=== PATIENT | male | born 1955 | race Caucasian/White ===

== ENCOUNTER 2025-05-16 08:05 | Inpatient (IN) | payer OTHER, SELFPAY ==
--- NOTE | 2025-04-25 13:17 | CM ---
CM reviewed medical records. Patient confirmed demographics. Patient lives independently alone. Patient has had a history fo VN, but could not remember the agency. Patient does not have a history of SNF. Patient has a cane and commode. Patient
encouraged to call Marcell at [facility] to discuss obtaining further equipment as needed. Patent had left message for Myrtle Miranda PT and patient will make an appointment for 05/18.
Patient's friend and family will provide assistance as needed post operatively.
PLAN: home with outpatient PT.
[2025-04-26 13:31] LABS: Hematocrit 47.3 % (39.0-52.0); Hemoglobin 16.5 g/dL (13.0-18.0); Mean Corp Hgb Conc. 34.9 g/dL (33.0-37.0); Mean Corpuscular Volume 87.9 fL (80.0-94.0); Platelet Count 279 10^3/uL (130-400); Red Cell Dist. Width 12.7 % (11.5-14.5)
[2025-04-26 13:33] VITALS: BMI 32.9
[2025-04-26 14:05] LABS: ALT (SGPT) 59 U/L (0-50); AST (SGOT) 37 U/L (17-59); Albumin 5.1 g/dl (3.5-5.0); Alkaline Phosphatase 63 U/L (38-126); Blood Urea Nitrogen 17 mg/dl (9-20); Calcium 10.3 mg/dl (8.4-10.2); Carbon Dioxide 30 mmol/L (22-30); Chloride 100 mmol/L (98-107); Estimated Creatinine Clearance 110 ml/min; Glucose 111 mg/dl (70-99); Potassium 5.0 mmol/L (3.5-5.1); Sodium 138 mmol/L (135-145); Total Protein 8.1 g/dl (6.3-8.2); eGFR > 60.00
[2025-04-27 08:40] LABS: Glycohemoglobin (HgbA1c) 6.6 % (4.0-5.6)
[2025-04-27 15:44] VITALS: BMI 32.9
[2025-05-16] VITALS (14 sets, daily range): BP systolic 121–175; BP diastolic 76–115; PULSE 63; O2SAT 97
[2025-05-16 08:57] LABS: Glucose - Point of Care 120 mg/dl (70-99)
[2025-05-16] MEDS: TYLENOL 650 MG PO ×3 (09:04→19:48)
[2025-05-16] MEDS: CELEBREX 200 MG PO (09:04)
[2025-05-16] MEDS: NORMOSOL-R/PLASMALYTE-A 1000 IV ×2 (09:05→17:31)
[2025-05-16] MEDS: BACTROBAN NASAL 1 GRAM NASAL (09:05)
--- NOTE | 2025-05-16 11:19 | W.PN.ORTHO ---
Today's Communication / Plan
-
d/c when stable
Assessment
.
Dressing:
Clean, dry and intact.
Assessment:
NIDDM-A1C 6.6-+ Lantus w/ Novolog ac given hyperglycemic risk [id number] ppx OP
Plan
.
Surgery / Date: L CIARA Arreaga 05/16/25
DVT Prophylaxis: Aspirin
Activity:
Out of bed.
PT/OT
Discharge Plan: Home w/ Outpatient PT
Vital Signs and Labs
.
Vital Signs and Labs:
Lab Results
04/26/25 13:14
04/26/25 13:14
Temp Pulse Resp BP Pulse Ox
98.2 F 70 16 142/89 97
05/16/25 09:05 05/16/25 09:05 05/16/25 09:05 05/16/25 09:05 05/16/25 09:05
--- NOTE | 2025-05-16 12:34 | W.DS.TRANS ---
DC Summary - Receiving Lead
-
Discharge Instructions:
Sleep Apnea Risk Intermediate
Discharge Diagnosis/Procedures L CIARA Arreaga 05/16/25
Diet Diabetic, Carb Controlled
Activity With Walker
Driving Restrictions No driving
Bathing Restrictions OK to Shower
Other Services PT
Instructions:
Stand-Alone Forms: Total Hip/Knee Replacement D/C
Changes to Home Medications: Yes
Discharge Medications:
DC Medications w/original date entered in [employer]
magnesium 250 mg tablet 250 mg PO DAILY 04/25/25
mecobalamin (vitamin B12) 1,000 mcg chewable tablet (B12 Active) 1,000 mcg PO DAILY 04/25/25
metformin 500 mg tablet 500 mg PO DAILY 04/25/25
multivitamin 1 tab PO DAILY 04/25/25
pramipexole 0.125 mg tablet 0.125 mg PO BID PRN restless legs 04/25/25
rosuvastatin 10 mg tablet 10 mg PO DAILY 04/25/25
mupirocin 2 % topical ointment 1 applic intranasal BID #1 tube 04/26/25
cefadroxil 500 mg capsule 500 mg PO BID #14 caps 05/05/25
celecoxib 200 mg capsule (Celebrex) 200 mg PO DAILY #14 caps 05/05/25
famotidine 20 mg tablet (Pepcid) 20 mg PO HS #30 tabs 05/05/25
gabapentin 300 mg capsule 300 mg PO HS neuropathic pain/sleep #10 caps 05/05/25
ondansetron HCl 4 mg tablet 4 mg PO Q6H PRN nausea and vomiting #30 tabs 05/05/25
oxycodone 5 mg tablet 5 - 10 mg (1 - 2 x 5 mg) PO Q6H PRN moderate-severe pain #30 tabs 05/05/25
Saccharomyces boulardii 250 mg capsule (Florastor) 250 mg PO BID #1 cap 05/16/25
acetaminophen 325 mg tablet (Tylenol) 650 mg (2 x 325 mg) PO QID #1 tab 05/16/25
aspirin 325 mg tablet 325 mg PO DAILY blood clot prevention #1 tab 05/16/25
docusate sodium 100 mg capsule (Colace) 100 mg PO BID stool softner #1 cap 05/16/25
losartan 100 mg-hydrochlorothiazide 25 mg tablet 1 tab PO DAILY #0 tabs 05/16/25
magnesium hydroxide 400 mg/5 mL oral suspension (Milk of Magnesia) 30 ml PO HS PRN constipation #1 mL 05/16/25
sennosides 8.6 mg tablet (Senokot) 17.2 mg (2 x 8.6 mg) PO BID laxative #2 tabs 05/16/25
Home Medication Changes
mupirocin 2 % topical ointment 1 applic intranasal BID #1 tube 04/26/25
cefadroxil 500 mg capsule 500 mg PO BID #14 caps 05/05/25
celecoxib 200 mg capsule (Celebrex) 200 mg PO DAILY #14 caps 05/05/25
famotidine 20 mg tablet (Pepcid) 20 mg PO HS #30 tabs 05/05/25
gabapentin 300 mg capsule 300 mg PO HS neuropathic pain/sleep #10 caps 05/05/25
ondansetron HCl 4 mg tablet 4 mg PO Q6H PRN nausea and vomiting #30 tabs 05/05/25
oxycodone 5 mg tablet 5 - 10 mg (1 - 2 x 5 mg) PO Q6H PRN moderate-severe pain #30 tabs 05/05/25
Saccharomyces boulardii 250 mg capsule (Florastor) 250 mg PO BID #1 cap 05/16/25
acetaminophen 325 mg tablet (Tylenol) 650 mg (2 x 325 mg) PO QID #1 tab 05/16/25
aspirin 325 mg tablet 325 mg PO DAILY blood clot prevention #1 tab 05/16/25
docusate sodium 100 mg capsule (Colace) 100 mg PO BID stool softner #1 cap 05/16/25
losartan 100 mg-hydrochlorothiazide 25 mg tablet 1 tab PO DAILY #0 tabs 05/16/25
magnesium hydroxide 400 mg/5 mL oral suspension (Milk of Magnesia) 30 ml PO HS PRN constipation #1 mL 05/16/25
sennosides 8.6 mg tablet (Senokot) 17.2 mg (2 x 8.6 mg) PO BID laxative #2 tabs 05/16/25
Pending Results: No
[2025-05-16] MEDS: DILAUDID 0.5 MG IV ×2 (13:50→14:05)
[2025-05-16 13:56] LABS: Glucose - Point of Care 115 mg/dl (70-99)
[2025-05-16] MEDS: NOVOLOG FLEXPEN-MODERATE RESISTANCE SC (15:06)
[2025-05-16] MEDS: TYLENOL PO (15:07)
[2025-05-16] MEDS: ROXICODONE 5 MG PO (15:10)
[2025-05-16] MEDS: CRESTOR 10 MG PO (15:10)
[2025-05-16 17:18] LABS: Glucose - Point of Care 249 mg/dl (70-99)
[2025-05-16] MEDS: GLUCOPHAGE 500 MG PO (17:31)
[2025-05-16] MEDS: ASPIRIN 325 MG PO (17:32)
[2025-05-16] MEDS: TORADOL 15 MG IV (17:33)
[2025-05-16] MEDS: NOVOLOG FLEXPEN-MODERATE RESISTANCE 3 UNITS SC (17:35)
[2025-05-16] MEDS: LANTUS 0.05 UNITS SC (17:36)
--- NOTE | 2025-05-16 18:35 | PTCARENOTE ---
pt admitted to 2S rm 2109 from PACU at 1445 via bed. pt arrived awake and alert, oriented to room, call maier, bed controls and plan of care with verbalized understanding. admission database and assessment competed as documented. pt educated
concerning posterolateral hip precautions.care ongoing.
[2025-05-16] MEDS: ANCEF 5 IV (19:47)
[2025-05-16] MEDS: SENOKOT 17.2 MG PO (19:47)
[2025-05-16] MEDS: BACTROBAN 2% OINTMENT 1 APPLIC NASAL (19:47)
[2025-05-16] MEDS: COLACE 100 MG PO (19:47)
[2025-05-16] MEDS: ROXICODONE 10 MG PO (19:51)
[2025-05-16] MEDS: PEPCID 20 MG PO (21:32)
[2025-05-16] MEDS: NEURONTIN 300 MG PO (21:32)
[2025-05-16 22:16] LABS: Glucose - Point of Care 274 mg/dl (70-99)
[2025-05-17] MEDS: TYLENOL PO (00:27)
[2025-05-17] MEDS: ROXICODONE 5 MG PO (01:30)
[2025-05-17] MEDS: MIRAPEX 0.125 MG PO ×2 (01:34→08:30)
[2025-05-17 03:06] VITALS: BP 137/71
[2025-05-17] MEDS: ANCEF 5 IV (04:17)
[2025-05-17] MEDS: TYLENOL 650 MG PO ×2 (04:18→08:23)
[2025-05-17] MEDS: TORADOL 15 MG IV (05:59)
[2025-05-17 07:40] VITALS: BP 146/90
[2025-05-17] MEDS: GLUCOPHAGE 500 MG PO (08:23)
[2025-05-17] MEDS: CRESTOR 10 MG PO (08:23)
[2025-05-17] MEDS: COLACE 100 MG PO (08:23)
[2025-05-17] MEDS: CELEBREX 200 MG PO (08:23)
[2025-05-17] MEDS: ASPIRIN 325 MG PO (08:24)
[2025-05-17] MEDS: SENOKOT 17.2 MG PO (08:24)
[2025-05-17] MEDS: BACTROBAN 2% OINTMENT 1 APPLIC NASAL (08:30)
[2025-05-17 08:33] LABS: Glucose - Point of Care 126 mg/dl (70-99)
[2025-05-17] MEDS: NOVOLOG FLEXPEN-MODERATE RESISTANCE SC (08:33)
[2025-05-17] MEDS: LANTUS 0.05 UNITS SC (08:33)
--- NOTE | 2025-05-17 08:57 | CM ---
CM was updated that patent will need home care. Patient expressed agreement with plan. CM updated [facility].
PLAN: Home with [facility]
[2025-05-17 09:17] VITALS: BP 146/90
[2025-05-17 09:26] VITALS: BP 149/79; PULSE 65
--- NOTE | 2025-05-17 09:37 | W.PN.ORTHO ---
Today's Communication / Plan
-
d/c
Assessment
.
Distal Motor Intact: Yes
Dressing:
Clean, dry and intact.
Assessment:
NIDDM-A1C 6.6-+ Lantus w/ Novolog ac given hyperglycemic risk [id number] ppx OP--sugars well controlled POD#1
Plan
.
Surgery / Date: L CIARA Arreaga 05/16/25
DVT Prophylaxis: Aspirin
Activity:
Out of bed.
PT/OT
Discharge Plan: Home w/ [facility]N
Subjective
.
.:
Patient resting comfortably.
Vital Signs and Labs
.
Vital Signs and Labs:
Lab Results
04/26/25 13:14
04/26/25 13:14
Temp Pulse Resp BP Pulse Ox
97.5 F 69 20 146/90 95
05/17/25 07:40 05/17/25 07:40 05/17/25 07:40 05/17/25 08:23 05/17/25 07:40
Non-invasive Hgb result: 16.5
Physical Exam
-
HEENT: No pallor, cyanosis, or jaundice. Throat clear.
NECK: Supple. No JVD.
RESPIRATORY: Lungs clear to auscultation.
CVS: S1, S2 normal. RRR.� No murmur, rub or gallop.
ABDOMEN: Soft, non-tender. No distension. BS+/normal.
EXTREMITIES: strength equal, no calf pain with palpation
WEB PRESS ROLL TENDER: AOx3. No focal deficits. 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
--- NOTE | 2025-05-17 10:10 | VNURNOTE ---
Home Health Liaison met with patient at bedside to discuss [facility] nurse/therapy, visits, schedule and homebound status. Patient is agreeable and understands that visits at home will be 2-3 x per week to assess and teach medical management. Patient
is aware that [facility] will contact them for start of care in 1-2 days after discharge from .
[facility] referral completed in [facility].
[2025-05-17 11:35] VITALS: BP 126/75
== END 2025-05-17 11:40 | disposition home health service (06) | DRG 470 ==
LOC: 2 SOUTH 08:05
PROVIDERS: ADMITTING PHYSICIAN Specialist; FAMILY PHYSICIAN Family Medicine
PROC: 0SRB03A Replacement of Left Hip Joint with Ceramic Synthetic Substitute, Uncemented, Open Approach (ICD-10-PCS; 2025-05-16)
DX: M16.12 Unilateral primary osteoarthritis, left hip (principal); Z96.642 Presence of left artificial hip joint; Z68.32 Body mass index [BMI] 32.0-32.9, adult; E66.9 Obesity, unspecified; E78.5 Hyperlipidemia, unspecified; Z96.651 Presence of right artificial knee joint; I45.10 Unspecified right bundle-branch block; G25.81 Restless legs syndrome; Z87.891 Personal history of nicotine dependence; F12.20 Cannabis dependence, uncomplicated; E11.9 Type 2 diabetes mellitus without complications; I10 Essential (primary) hypertension; Z88.5 Allergy status to narcotic agent
CPT/HCPCS: 36415; 73502; 80053; 82962; 83036; 85027; 87070; 97162; 97167; 97530; 97535; C1713; C1776